=== PATIENT | male | born 1970 | race Caucasian/White ===

== ENCOUNTER 2021-10-28 20:32 | Emergency (ER) | payer BC, SELFPAY ==
[2021-10-28] VITALS (25 sets, daily range): BP systolic 116–155; BP diastolic 76–98; PULSE 90–107; RESP 10–26; TEMP 36.7; O2SAT 95–98; BMI 34.9
--- NOTE | 2021-10-28 20:43 | DI.RAD.S_ITS ---
PROCEDURE: XR FOREARM LT 2V INDICATIONS: left wrist injury, fall TECHNIQUE: 2 views of the forearm were acquired. COMPARISON: [facility], CR, XR WRIST LT MIN 3V, 10/28/2021, 21:06. FINDINGS: Bones: No fractures or dislocations. No suspicious bony lesions. Soft tissues: No suspicious soft tissue calcifications or masses. IMPRESSION: No previously unidentified fractures are found. Please see wrist plain film report for same day. Dictated by: Blayne Valentin M.D. on 10/28/2021 at 22:00 Approved by: Blayne Valentin M.D. on 10/28/2021 at 22:00
--- NOTE | 2021-10-28 20:43 | DI.RAD.S_ITS ---
PROCEDURE: XR WRIST LT MIN 3V INDICATIONS: left wrist injury, fall TECHNIQUE: 3 views of the wrist were acquired. COMPARISON: None. FINDINGS: Bones: No dislocations. No suspicious bony lesions. There is a distal radius impacted intra-articular ventrally angulated Colles'fracture. Scaphoid view: Not obtained but the scaphoid visualized appears normal Soft tissues: No suspicious soft tissue calcifications. IMPRESSION: Distal radius fracture, intra-articular angulated and comminuted with impaction. Dictated by: Blayne Valentin M.D. on 10/28/2021 at 21:59 Approved by: Blayne Valentin M.D. on 10/28/2021 at 21:59
--- NOTE | 2021-10-28 23:10 | DI.RAD.S_ITS ---
PROCEDURE: XR WRIST LT 2V INDICATIONS: post reduction TECHNIQUE: To views of the wrist were acquired. COMPARISON: [facility], CR, XR FOREARM LT 2V, 10/28/2021, 21:06. [facility], CR, XR WRIST LT MIN 3V, 10/28/2021, 21:06. FINDINGS: Bones: No new fractures or dislocations. No suspicious bony lesions. There has been appreciable improvement in the malalignment abnormalities associated with the distal radius intra-articular comminuted fractures after reduction and splinting. Scaphoid view: Not obtained. Soft tissues: No suspicious soft tissue calcifications. IMPRESSION: No new fractures found. Improve malalignment after splinting. Dictated by: Blayne Valentin M.D. on 10/28/2021 at 23:43 Approved by: Blayne Valentin M.D. on 10/28/2021 at 23:44
[2021-10-28] MEDS: ONDANSETRON 4 MG ODT PREPACK 1 BOTTLE MISC (23:23)
[2021-10-28] MEDS: HYDROCODONE/ACET 5/325 PREPACK 1 BOTTLE MISC (23:23)
[2021-10-28] MEDS: propofoL 200 MG/20 ML VIAL IV (23:24)
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
== END 2021-10-28 23:45 | disposition home or self-care (01) ==
PROVIDERS: Emergency Provider Emergency Medicine
DX: S52.502A Unspecified fracture of the lower end of left radius, initial encounter for closed fracture (principal); V29.9XXA Motorcycle rider (driver) (passenger) injured in unspecified traffic accident, initial encounter
CPT/HCPCS: 25605; 29125; 73090; 73100; 73110; 99152; 99284; 99285; J2704